=== PATIENT | female | born 2000 | race Caucasian/White ===

== ENCOUNTER 2022-10-15 12:55 | Emergency (ER) | payer BC, SELFPAY ==
[2022-10-15 13:08] VITALS: BP 153/100; PULSE 88; RESP 16; TEMP 36.6; O2SAT 100
--- NOTE | 2022-10-15 14:28 | ED.BACK ---
HPI - Back Pain/Injury General Chief Complaint: Back Pain/Injury Stated Complaint: back injury Time Seen by Provider: 10/15/22 13:51 Source: patient Limitations: no limitations History of Present Illness HPI Narrative: Patient is a 22-year-old female present to the emergency department complaining of back pain started on Tuesday when she woke up with no precipitating factor that she can associate with that. 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 Patient states that the pain was not radiating when it started rather was just in her lower back but today around noon she was doing some stretching and when she was doing a lot of flexing of her back and afterwards she noticed some radiation of the pain down to her proximal lateral thigh mostly on the right side but a scant amount on the left side. Patient describes the pain as a tightness and burning sensation. Patient notes that she has been trying Motrin 600 every 4-6 hours which does help and she last took 1 at around 11:30 PM and also has been trying warm compresses. Patient notes that she is on Depo-Provera and has irregular periods. Patient denies fever, history of cancer, history of IV drug use, recent illness, recent injuries, numbness, weakness, urinary incontinence, stool incontinence, chest pain, shortness of breath, hematuria, dysuria, urinary frequency, urinary urgency. Related Data Allergies Allergy/AdvReac Type Severity Reaction Status Date / Time azithromycin Allergy Unknown Verified 10/15/22 14:34 PMFSH Comments Patient admits to a past medical history of anxiety. Patient missed 1 allergy to azithromycin, unsure of reaction. Patient admits to seeing a primary care physician on regular basis. Patient is taking medications including BuSpar, Xanax, Depo-Provera. Patient denies any past surgical history. Patient denies tobacco alcohol or illicit drug use. Exam Const: General: healthy appearing, no acute distress and alert Nutritional Appearance: well nourished Orientation/consciousness: patient oriented x3 HENMT: Head: normal to inspection Mouth: Yes moist mucous membranes Throat: posterior oropharynx normal Eyes: Conjunctivae: conjunctivae normal Pupils: Equal, round and reactive pupils present Resp: Effort & Inspection: normal respiratory effort and not labored Auscultation: clear to auscultation bilaterally Cardio: Rate: regular rate Rhythm: regular rhythm GI: Inspection: non-distended GI Palp: Yes Soft to palpation and No Tenderness to palpation present (GI) : General: Yes no CVA tenderness Back/Spine/Pelvis: Other: No midline vertebral tenderness to palpation throughout, no step offs. Skin: Rashes: no rashes Wounds: no wounds Neuro: General: patient oriented x3, moves all extremities and no focal motor deficits Gait exam (Neuro): Normal gait present Extrem: General: no pedal edema Other: Positive straight leg raise on the right. Negative straight leg raise on the left. Psych: Mental Status: mental status grossly normal Course Vital Signs Vital signs: Vital Signs Temperature 97.8 F 10/15/22 13:08 Pulse Rate 88 10/15/22 13:08 Respiratory Rate 16 10/15/22 13:08 Blood Pressure 153/100 H 10/15/22 13:08 Pulse Oximetry 100 10/15/22 13:08 Oxygen Delivery Room Air 10/15/22 13:08 Temperature 97.8 F 10/15/22 13:08 Pulse Rate 88 10/15/22 13:08 Respiratory Rate 16 10/15/22 13:08 Blood Pressure 153/100 H 10/15/22 13:08 Pulse Oximetry 100 10/15/22 13:08 Oxygen Delivery Room Air 10/15/22 13:08 MDM - Back Pain/Injury MDM Narrative Medical decision making narrative: Patient presents as noted above. Vital signs wi
[2022-10-15] MEDS: diazePAM (*CRX) 5 MG TABLET PO (14:51)
[2022-10-15] MEDS: KETOROLAC 30 MG/ML VIAL (*BKC) 15 MG IM (14:52)
[2022-10-15] MEDS: Please add drug allergy info to patient profile. 1 EACH XX (15:43)
== END 2022-10-15 15:00 | disposition home or self-care (01) ==
PROVIDERS: Emergency Provider Student in an Organized Health Care Education/Training Program
DX: S39.012A Strain of muscle, fascia and tendon of lower back, initial encounter (principal); M54.16 Radiculopathy, lumbar region; X58.XXXA Exposure to other specified factors, initial encounter
CPT/HCPCS: 81025; 96372; 99283; A9270; J1885